=== PATIENT | female | born 1955 | race Caucasian/White ===

== ENCOUNTER 2018-11-06 14:33 | Emergency (ER) | payer BC ==
[~2018-11-06] VITALS: Ht 162.6 cm; Wt 99.8 kg
[2018-11-06] MEDS ORDERED: LISINOPRIL-HCT1 EAC1 PO (14:59)
[2018-11-06] MEDS ORDERED: LEVOTHYROXINE50 MCG PO (15:00)
== END 2018-11-06 15:38 | disposition home or self-care (01) ==
LOC: ED 14:33
DX: I83.892 Varicose veins of left lower extremity with other complications (principal); I10 Essential (primary) hypertension; Z88.0 Allergy status to penicillin; Z79.899 Other long term (current) drug therapy
CPT/HCPCS: 99282

== ENCOUNTER 2023-09-11 17:31 | Emergency (ER) | payer MEDICARE ==
[~2023-09-11] VITALS: Ht 162.6 cm; Wt 97.1 kg
[~2023-09-11 17:31] MED LIST: LEVOTHYROXINE50 MCG PO; LISINOPRIL-HCT1 EAC1 PO
[2023-09-11] MEDS ORDERED: CARVEDILOL25 MG PO (17:55)
[2023-09-11] MEDS ORDERED: FLUOCINONIDE60 ML TOP (17:55)
[2023-09-11] MEDS ORDERED: ELIQUIS5 MG PO (17:56)
[2023-09-11] MEDS ORDERED: DOFETILIDE500 MCG PO (17:56)
[2023-09-11 19:02] VITALS: BP 126/80
== END 2023-09-11 18:55 | disposition home or self-care (01) ==
LOC: ED 17:31
DX: I83.892 Varicose veins of left lower extremity with other complications (principal); I48.91 Unspecified atrial fibrillation; I10 Essential (primary) hypertension; Z88.0 Allergy status to penicillin; Z79.01 Long term (current) use of anticoagulants; Z79.890 Hormone replacement therapy; Z79.899 Other long term (current) drug therapy; Z95.0 Presence of cardiac pacemaker
CPT/HCPCS: 99283